=== PATIENT | female | born 1980 | race Caucasian/White ===

== ENCOUNTER 2022-09-16 15:21 | Emergency (ER) | payer MEDICAID ==
[~2022-09-16] VITALS: Ht 175.3 cm; Wt 145.1 kg
[2022-09-16 15:34] VITALS: BP 121/70
[2022-09-16] MEDS ORDERED: PROMETHAZINE DM 6.25/15MG-5ML ORASYR PO PRN (15:55)
[2022-09-16] MEDS ORDERED: IBUPROFEN 600 MG TAB PO ONE (15:55)
[2022-09-16] MEDS ORDERED: DOCUSATE SODIUM 100 MG GELCAP PO SCH ×2 (16:00)
[2022-09-16] MEDS ORDERED: DOCUSATE SODIUM 100 MG GELCAP PO ONE (16:00)
[2022-09-16] MEDS ORDERED: BENZONATATE 100 MG CAPLF PO ONE ×2 (16:50)
--- NOTE | 2022-09-16 17:03 | NUR ---
[facility] ORDER CHANGED PER MD
[2022-09-16] MEDS ORDERED: LIDO15SO4 PO (17:34)
[2022-09-16] MEDS ORDERED: PSYL0.4C2 PO (17:34)
[2022-09-16] MEDS ORDERED: IBUP-2213 PO (17:34)
[2022-09-16] MEDS ORDERED: BENZ150C2 PO (17:34)
--- NOTE | 2022-09-16 18:25 | NUR ---
Patient discharged with v/s stable. Written and verbal after care instructions given and explained. Patient alert, oriented and verbalized understanding of instructions. Ambulatory with steady gait. All questions addressed prior to discharge. ID band removed. Patient advised to follow up with PMD. Rx of TESSALON given. Patient educated on indication of medication including possible reaction and side effects. Opportunity to ask questions provided and answered.
== END 2022-09-16 18:25 | disposition home or self-care (01) ==
LOC: MED 15:21
DX: B34.9 Viral infection, unspecified (principal); J45.909 Unspecified asthma, uncomplicated; Z90.49 Acquired absence of other specified parts of digestive tract; Z79.899 Other long term (current) drug therapy; Z79.1 Long term (current) use of non-steroidal anti-inflammatories (NSAID)
CPT/HCPCS: 71046; 99284